=== PATIENT | female | born 1990 | race Caucasian/White ===

== ENCOUNTER 2016-03-04 11:57 | Emergency (ER) | payer MEDICAID ==
[2016-03-04 12:31] VITALS: BP 158/107; PULSE 99; RESP 20; TEMP 98.6; O2SAT 97
--- NOTE | 2016-03-04 13:47 | UCPHY ---
H & P Patient Type: Established HPI/ROS: This patient presents with a chief complaint of a swollen right knee. 1st episode was in September of 2014 when she was seen here, had at normal x-rays and referred to rheumatology due to ultimately drained a and injected some steroids. Initially this seemed to help a however is only reoccurred shortly thereafter. She says that her knee swells up like this monthly and has been doing so since the original visit. These episodes are not associated with trauma and she is not no time fallen or twisted her knee. She does spend a lot of time on her feet while at work. she hears popping sounds in the lateral aspect of the knee when walking. The pain in her knee radiates up the lateral aspect of her thigh toward her hip. And she she has recently developed some numbness in the 5th toe of her foot. Her feet feel cold to her. Smoking Status: Never smoked Physical Exam: This patient is alert, oriented, lucid and has normal mental status. She does not appear to be in any acute distress except for will when she moves her right leg. Examination of the knee reveals a prominent the joint effusion with some tenderness over the lateral aspect of the joint. Good skin color is normal both in color and temperature. The collateral ligaments and the cruciate ligaments are intact and stressing these does not cause pain. Peripheral pulses are symmetric. Motor function is strong and intact. Constitutional: Initial Vital Signs Temperature (C) 37 C 03/04/16 12:29 Heart Rate 99 03/04/16 12:29 Respiratory Rate 20 03/04/16 12:29 Blood Pressure 158/107 H 03/04/16 12:29 O2 Sat (%) 97 03/04/16 12:29 O2 Delivery Mode Room Air Allergies/Adverse Reactions: No Known Allergies Allergy (Verified 03/04/16 12:28) Home Medications: Medication Instructions Recorded Control 03/04/16 LEVOTHYROXINE SODIUM 03/04/16 Medical Decision Making ED Course/Re-evaluation: An Rui wrap was applied. I did not feel that x-rays would be helpful in further delineating this problem. Differential Diagnosis: I feel that this patient probably has a meniscus injury most likely the lateral meniscus. There is nothing that would suggest infection or ligamentous instability or fracture. Because of the previous visit with the figure refinisher and repairer I do not believe that this is related to any type of arthritis. Departure - Departure Disposition: Home, Routine, Self-Care Clinical Impression: Knee effusion, right Condition: Good Instructions: Swollen Knee Joint (ED), Meniscus Tear (ED) Additional Instructions: You should follow-up with the orthopedist whose name is provided to you in these pages. Keep your leg elevated as much as possible, apply ice to the knee today and tomorrow and then begin applying heat on Saturday. Limit Your activities as much as possible. Adult Pain & Fever Control: We recommend Acetaminophen (Tylenol) and Ibuprofen (Motrin, Advil) for pain and fever control. When fever is high or pain severe, both drugs can be used at the same time, but at different intervals. Please note the time differences. Your dose is: Acetaminophen [650]mg every 4 to 6 hours ibuprofen [600]mg every [6] hours with food OR naproxen Sodium (Aleve) [440]mg every 12 hours. Note: do not take Acetaminophen with Hydrocodone (Vicodin, Lortab) or Oxycodone (Percocet). These medications also contain Acetaminophen. No more than 3000 mg of Acetaminophen should be taken in 24 hours (for an adult) . The maximal dose of ibuprofen that it is safe in a 24-hour period is 2400 mg. You may take 400 mg every 4 hours, 600 mg every 6 hours or 800 mg every 8 hours safely. Referrals: Janey Elmore MD [Primary Care Provider] - As per Instructions Wesley Alex MD [Medical Doctor] - As per Instructions - PQRS PQRS Measurement: Not applicable
== END 2016-03-04 13:50 | disposition home or self-care (01) ==
LOC: CED 11:57
DX: M25.461 Effusion, right knee (principal)
CPT/HCPCS: 99213-PO; G0463-PO

== ENCOUNTER 2018-07-29 18:20 | Emergency (ER) | payer MEDICAID | END 2018-07-29 19:53 | disposition home or self-care (01) | LOC: CED 18:20 ==